=== PATIENT | female | born 1990 | race Two or more races ===

== ENCOUNTER 2020-12-28 22:21 | Inpatient (IN) | payer OTHER ==
[~2020-12-28] VITALS: Ht 167.6 cm; Wt 47.2 kg
[2020-12-28] MEDS ORDERED: PRENATAL TABLE1 EAC3 PO (22:46)
== END 2021-01-02 10:37 | disposition home or self-care (01) | DRG 833 ==
LOC: OB/GYN 22:21 → LDR 22:21 → OB/GYN 12-30 08:54
PROVIDERS: ADMIT Obstetrics & Gynecology; ATTEND Obstetrics & Gynecology
PROC: 4A1HXFZ Monitoring of Products of Conception, Cardiac Rhythm, External Approach (ICD-10-PCS; principal; 2020-12-28)
PROC: BY4FZZZ Ultrasonography of Third Trimester, Single Fetus (ICD-10-PCS; 2020-12-30)
DX: O60.03 Preterm labor without delivery, third trimester (principal); Z3A.34 34 weeks gestation of pregnancy; Z20.822 Contact with and (suspected) exposure to COVID-19

== ENCOUNTER 2021-01-10 07:34 | Inpatient (IN) | payer OTHER ==
[~2021-01-10] VITALS: Ht 167.6 cm; Wt 47.2 kg
[~2021-01-10 07:34] MED LIST: PRENATAL TABLE1 EAC3 PO
== END 2021-01-12 11:33 | disposition home or self-care (01) | DRG 807 ==
LOC: LDR 07:34 → OB/GYN 16:01
PROVIDERS: ADMIT Obstetrics & Gynecology; ATTEND Obstetrics & Gynecology
PROC: 10E0XZZ Delivery of Products of Conception, External Approach (ICD-10-PCS; principal; 2021-01-10)
PROC: 4A1HXFZ Monitoring of Products of Conception, Cardiac Rhythm, External Approach (ICD-10-PCS; 2021-01-10)
DX: O60.14X0 Preterm labor third trimester with preterm delivery third trimester, not applicable or unspecified (principal); Z37.0 Single live birth; Z3A.36 36 weeks gestation of pregnancy; Z20.822 Contact with and (suspected) exposure to COVID-19

== ENCOUNTER 2021-12-05 15:08 | Emergency (ER) | payer OTHER ==
[~2021-12-05] VITALS: Ht 167.6 cm; Wt 43.5 kg
== END 2021-12-05 16:16 | disposition home or self-care (01) ==
LOC: ER 15:08
DX: R21 Rash and other nonspecific skin eruption (principal); T78.40XA Allergy, unspecified, initial encounter; X58.XXXA Exposure to other specified factors, initial encounter